=== PATIENT | female | born 1975 | race Two or more races ===

== ENCOUNTER → 2018-05-31 | Outpatient (CLI) | payer OTHER ==
--- NOTE | 2018-05-31 10:06 | Diagnostic Imaging Report ---
MRI of the right ankle without contrast. History: Ankle pain. Torn lateral ligament. Swelling. Pain worse with walking. Technique: Utilizing a high-field 1.5T magnet, the following sequences were acquired: PD FS in all 3 planes with additional axial PD. Comparison: None. Findings: Achilles tendon and plantar fascia: The Achilles tendon is intact. There is mid substance degeneration and thickening involving the medial cord of the plantar fascia at the inferior calcaneal insertion site. There is an associated small bone spur. No plantar fascial tear is seen. Cartilage and bone: Negative for osteochondral lesion of the tibiotalar and subtalar joints. Negative for fracture, osteonecrosis, or dislocation. There is mild bone marrow edema at the medial talar dome best seen on series 4 image 20 likely due to a contusion. Medial ankle: There is mild scarring of the deltoid ligament complex. The majority of the fibers are intact. The medial flexor tendons are intact. Lateral ankle: There is a high-grade tear of the anterior talofibular and calcaneofibular ligaments. The posterior talofibular ligaments are intact. There is associated soft tissue edema and an effusion/synovitis in the anterior lateral gutter. The syndesmotic ligaments are intact. The peroneal tendons are normal. Anterior ankle: The anterior extensor tendons are normal. Other findings: There is a tibiotalar joint effusion and mild synovitis. There is a moderate amount of edema about the ankle most pronounced posteriorly and laterally. Impression: High-grade tear of the anterior talofibular and calcaneofibular ligaments. The posterior talofibular ligaments are intact. There is associated soft tissue edema and an effusion/synovitis in the anterior lateral gutter. Tibiotalar joint effusion and mild synovitis. There is a moderate amount of edema about the ankle most pronounced posteriorly and laterally. Mild bone marrow edema at the medial talar dome best seen on series 4 image 20 likely due to a contusion Signed by: Dr. Andrea Ortiz M.D. on 05/31/2018 10:03 AM
== END ==
LOC: MRI 08:52
PROVIDERS: ATTEND Podiatrist Foot & Ankle Surgery
DX: M25.571 Pain in right ankle and joints of right foot (principal); M25.471 Effusion, right ankle; S93.491A Sprain of other ligament of right ankle, initial encounter

== ENCOUNTER → 2018-07-13 | Day surgery (SDC) | payer OTHER ==
[~2018-07-13] MED LIST: ACETAMINOPHEN 1000 MG/100 ML IV ONE; BUPIVACAINE HCL 0.5% INJ 30 ML VIAL INJ ONE; CEFAZOLIN SOD 1 GM/NS 50ML 50 ML IV ONE; DEXAMETHASONE SOD PHOS INJ 4 MG/ML VIAL ONE; LIDOCAINE HCL 2% LOCAL INJ 5 ML SDV VIAL INJ ONE; METOCLOPRAMIDE HCL 10 MG/2ML VIAL ONE; MIDAZOLAM HCL 2 MG/2 ML VIAL ONE; ONDANSETRON HCL INJ 2MG/ML 2ML 2 MG/ML VIAL ONE; PROPOFOL IV EMULSION 10 MG/ML 20 ML VIAL ONE; SEVOFLURANE INHAL SOLN 250 ML PEN BTL ONE
--- OUTSIDE RECORDS SUMMARY | 2018-07-13 05:13 | XMS REPORT ---
[facility] Address Unknown Phone Unavailable Care Team Providers Care [facility] Former Name Role Phone Maggie MEJIA Unavailable Unavailable Problems This patient has no known problems. Allergies, Adverse Reactions, Alerts This patient has no known allergies or adverse reactions. Medications This patient has no known medications. Results Test Description Test Time Test Comments Text Results Atomic Results Result Comments MRI ANKLE RIGHT WO 2018-05-31 09:55:00 [facility] [address] [address] Patient Name: JOSE MONTEIRO MR #: [id number] : 1975 Age/Sex: 43/F Req #: [id number] [facility] Physician: Ordered by: Maggie MEJIA DPM Report #: [id number] Location: MRI Room/Bed: Procedure: [id number] MRI/MRI ANKLE RIGHT WO Exam Date: Exam Time: REPORT STATUS: Signed MRI of the right ankle without contrast. History: Ankle pain. Torn lateral ligament. Swelling. Pain worse with walking. Technique: Utilizing a high-field 1.5T magnet, the following sequences were acquired: PD FS in all 3 planes with additional axial PD. Comparison: None. Findings: Achilles tendon and plantar fascia: The Achilles tendon is intact. There is mid substance degeneration and thickening involving the medial cord of the plantar fascia at the inferior calcaneal insertion site. There is an associated small bone spur. No plantar fascial tear is seen. Cartilage and bone: Negative for osteochondral lesion of the tibiotalar and subtalar joints. Negative for fracture, osteonecrosis, or dislocation. There is mild bone marrow edema at the medial talar dome best seen on series 4 image 20 likely due to a contusion. Medial ankle: There is mild scarring of the deltoid ligament complex. The majority of the fibers are intact. The medial flexor tendons are intact. Lateral ankle: There is a high-grade tear of the anterior talofibular and calcaneofibular ligaments. The posterior talofibular ligaments are intact. There is associated soft tissue edema and an effusion/synovitis in the anterior lateral gutter. The syndesmotic ligaments are intact. The peroneal tendons are normal. Anterior ankle: The anterior extensor tendons are normal. Other findings: There is a tibiotalar joint effusion and mild synovitis. There is a moderate amount of edema about the ankle most pronounced posteriorly and laterally. Impression: High-grade tear of the anterior talofibular and calcaneofibular ligaments. The posterior talofibular ligaments are intact. There is associated soft tissue edema and an effusion/synovitis in the anterior lateral gutter. Tibiotalar joint effusion and mild synovitis. There is a moderate amount of edema about the ankle most pronounced posteriorly and laterally. Mild bone marrow edema at the medial talar dome best seen on series 4 image 20 likely due to a contusion Signed by: Dr. Andrea Ortiz M.D. on 05/31/2018 10:03 AM Dictated By: ANDREA ORTIZ MD, MD [id number] Transcribed By: RICKY on 05/31/18 1003 COPY TO: Maggie MEJIA DPM
--- NOTE | 2018-07-13 08:28 | Operative Report ---
DATE OF PROCEDURE: 07/13/2018 SURGEON: Kyra Roberts DPM PREOPERATIVE DIAGNOSIS: Right lateral ankle ligament rupture and right heel spur. POSTOPERATIVE DIAGNOSIS: Right lateral ankle ligament rupture and right heel spur. PLANNED PROCEDURE: 1. Right Brostrom lateral ankle reconstruction. 2. Right excision of heel spur. SURGEON: Mode Wagner DPM ([place]). MANUFACTURING QUALITY ENGINEER: Kyra Roberts DPM. ANESTHESIA: General with a postoperative block consisting of 20 mL of 0.5% Marcaine plain mixed with 1 mL of dexamethasone phosphate. HEMOSTASIS: Pneumatic thigh tourniquet set at 350 mmHg for a total time of approximately 33 minutes. ESTIMATED BLOOD LOSS: Less than 10 mL. PATHOLOGY: None. MATERIALS: One G2 bone anchor, 3-0 Vicryl, and 4-0 Prolene. PROCEDURE NOTE: The patient was seen in the preoperative waiting room, where the correct procedure and site was identified. The patient was brought to the operating room, placed on the operating table in the supine position. General anesthesia was initiated. At this time, a well-padded pneumatic tourniquet was placed about the patient's right thigh. The right foot, ankle, and leg were scrubbed, prepped, and draped in the usual aseptic manner. The right foot, ankle, and leg was exsanguinated with an Esmarch bandage and the pneumatic thigh tourniquet was inflated to 350 mmHg for a total time of approximately 33 minutes. Attention was directed to the lateral aspect of the patient's right ankle where an inverted J incision was made at the anterior aspect of the distal fibula wrapping inferiorly around it. The incision was carried through subcutaneous tissue it from deeper underling structures. All vital and neurovascular structures were identified and retracted medially and laterally. All bleeders were cauterized or ligated as deemed necessary. At this time, the flexor retinaculum and the anterior ankle capsule joint was incised as well as the anterior talofibular ligament, which was noted to be frayed and attenuated. At this point, the distal aspect of the fibula was identified and the space was created for the implantation of the G2 bone anchor. It was placed per manufacture protocol and confirmed via intraoperative fluoroscopy. Next, utilizing the sutures from the G2 bone anchor, the anterior talofibular ligament and ankle capsule was reattached to the distal aspect of the fibula. Next, utilizing the Orthocord suture, the Barboza modification with the flexor retinaculum plication was performed. Prior to this, the wound was copiously irrigated with sterile saline. The incision site was reapproximated with 3-0 Vicryl, subcutaneous tissue with 3-0 Vicryl and the skin was closed using simple interrupted sutures of 4-0 Prolene. Attention was then directed to the medial aspect of the patient's right heel where a 4 cm linear incision was made to the medial inferior aspect of the heel. The incision was carried through subcutaneous tissue it from deeper underling structures. All vital and neurovascular structures were identified and retracted medially and laterally and all bleeders were cauterized or ligated as deemed necessary. Attention was directed to the medial band of the plantar fascia, which was noted to be thickened. Utilizing Metzenbaum scissors, approximately 1/3 to 1/2 of the medial aspect of the plantar fascia was cut to allow for good visualization of the bone spur. Utilizing osteotome and mallet as well as a rongeur, the bone spur was resected and smoothed down to anatomic alignment with a bone rasp. The wound was then flushed with copious amounts of sterile saline. Capsule and deep tissue reapproximated with 3-0 Vicryl, subcutaneous tissue with 3-0 Vicryl and the skin was closed utilizing a running interlocking suture of 4-0 Prolene. All incision sites were dressed with Adaptic, 4x4s, Kerlix, Webril, 4 x 30 posterior splint, 4 inch Balbir wrap, and 6-inch Balbir wrap. Prior to wound closure, a TLS drain was placed per manufacture protocol and the patient was given instructions about removal. The patient was transferred to the postop recovery room with vital signs stable and neurovascular status intact. The patient was monitored there for a short period time before being sent home with the following written and oral instructions. 1. Keep the dressing clean, dry, and intact. 2. The patient is to remain nonweightbearing to the right lower extremity and to avoid any ambulation until being seen in the office. 3. The patient was given office number to try to contact us if any problems arise. Dictated by Kyra Roberts, DONNA S DONNA Bernal (Charley)/KEATON /[id number]
[2018-07-13 08:40] VITALS: BP 108/75
== END | disposition home or self-care (01) ==
LOC: OR 05:11
PROVIDERS: ATTEND Podiatrist Foot & Ankle Surgery
DX: S93.491A Sprain of other ligament of right ankle, initial encounter (principal); S93.411A Sprain of calcaneofibular ligament of right ankle, initial encounter; M77.31 Calcaneal spur, right foot; X58.XXXA Exposure to other specified factors, initial encounter
CPT/HCPCS: 27695; 28119; 81025; C1713; J0131; J0690; J1100; J2001; J2250; J2405; J2704; J2765